=== PATIENT | female | born 1995 | race Caucasian/White ===

== ENCOUNTER 2016-11-06 09:07 | Emergency (ER) | payer MEDICAID ==
[~2016-11-06] VITALS: Ht 149.9 cm; Wt 70.3 kg
[2016-11-06 09:26] VITALS: BP 116/71
--- NOTE | 2016-11-06 09:27 | NUR ---
PT AMBULATED TO BED 4 AT THIS TIME.
--- NOTE | 2016-11-06 09:37 | NUR ---
21 F BIB SELF C/O PRODUCTIVE COUGH X 2 DAYS WITH GREEN SPUTUM; PATIENT ALSO C/O FATIGUE AND FEVER; PT STATES PAIN WHEN COUGHING THAT OCCURS ALL OVER CHEST THAT IS 8 OUT OF 10 ON A NUMERIC PAIN SCALE; DENIES N/V/D; SKIN IS PINK/WARM/DRY; AAOX4 WITH EVEN AND STEADY GAIT; LUNGS CLEAR BL; HR EVEN AND REGULAR; VSS; PATIENT POSITIONED FOR COMFORT; HOB ELEVATED; BEDRAILS UP X2; BED DOWN. ER MD MADE AWARE OF PT STATUS.
--- NOTE | 2016-11-06 09:40 | NUR ---
ER MD YBARRA BY BEDSIDE EXAMINING PT
--- NOTE | 2016-11-06 09:45 | NUR ---
XRAY AT BEDSIDE.
[2016-11-06] MEDS ORDERED: IBUPROFEN 800 MG TAB PO ONE (09:55)
--- NOTE | 2016-11-06 10:16 | NUR ---
UA AND INFLUENZA SWAB DONE; AWAITING X-RAY
[2016-11-06 10:37] LABS: APPEARANCE,URINE CLEAR (CLEAR); BILIRUBIN,URINE 1+ (NEGATIVE); BLOOD, URINE TRACE-I (NEGATIVE); COLOR,URINE YELLOW (YELLOW); LEUKOCYTE ESTERASE ,URINE NEGATIVE (NEGATIVE); NITRITE, URINE NEGATIVE (NEGATIVE); PROTEIN,URINE NEGATIVE (NEGATIVE); UGLUCOSE NEGATIVE (NEGATIVE); UROBILINOGEN,URINE 0.2 EU/dL (0.2 - 1)
[2016-11-06 10:56] LABS: ICTOTEST NEGATIVE (NEGATIVE)
[2016-11-06 10:57] LABS: BACTERIA,URINE 1+ /HPF (None Seen); MUCUS,URINE 1+ /LPF (None Seen); RBC,URINE 0-5 (RARE) /HPF (0-5); SQUAMOUS EPITHELIAL CELL,UR 0-3 (FEW) /LPF (0-3 (FEW)); WBC,URINE 0-5 (RARE) /HPF (0-5)
--- NOTE | 2016-11-06 11:07 | NUR ---
ER MD DR. YBARRA RE-EVALUATING PT AT BEDSIDE.
--- NOTE | 2016-11-06 11:36 | NUR ---
TATE BY BEDSIDE TALKING TO MOTHER OF PATIENT
[2016-11-06 11:46] VITALS: BP 116/71
--- NOTE | 2016-11-06 11:47 | NUR ---
Patient discharged with v/s stable. Written and verbal after care instructions given and explained. Patient alert, oriented and verbalized understanding of instructions. Ambulatory with steady gait. All questions addressed prior to discharge. ID band removed. Patient advised to follow up with PMD. Rx of Abulterol and Motrin given. Patient educated on indication of medication including possible reaction and side effects. Opportunity to ask questions provided and answered.
== END 2016-11-06 11:47 | disposition home or self-care (01) ==
LOC: MED 09:07
DX: J06.9 Acute upper respiratory infection, unspecified (principal)
CPT/HCPCS: 36415; 81001; 81025; 87804; 99284